=== PATIENT | male | born 1955 | race American Indian/Alaskan Native ===

== ENCOUNTER 2018-10-13 07:55 | Emergency (ER) | payer MEDICAID ==
[2018-10-13 07:56] VITALS: BMI 28.4
[2018-10-13 08:07] VITALS: BP 156/81; PULSE 96; RESP 20; TEMP 98.7; O2SAT 96
[2018-10-13] MEDS ORDERED: Tdap Vaccine 0.5 ml Vial (10-64 yrs) IM ONE ×2 (08:20→08:25)
--- NOTE | 2018-10-13 08:30 | C.PDOC ---
History Of Present Illness 63 y/o male presents to the ER for evaluation of right hand dog bite which has been present for the past 2 days. Patient states that the wound is well-healing. Patient reports that the dog was her cousin's pet and the dog is UTD with vaccinations. He notes that he decided to come to the ER because he wants a tetanus vaccination. Denies having fever,chills, weakness, numbness, and other injuries. Time Seen by Provider: 10/13/18 08:11 Chief Complaint (Nursing): Bite History Per: Patient History/Exam Limitations: no limitations Onset/Duration Of Symptoms: Days Current Symptoms Are (Timing): Still Present Severity: Moderate Past Medical History Reviewed: Historical Data, Nursing Documentation, Vital Signs Vital Signs: Last Vital Signs Temp 98.7 F 10/13/18 08:04 Pulse 96 H 10/13/18 08:04 Resp 20 10/13/18 08:04 BP 156/81 H 10/13/18 08:04 Pulse Ox 96 10/13/18 08:04 - Medical History PMH: HTN, Hypercholesterolemia Denies: Chronic Kidney Disease Other Surgeries: Hx of surgeries Family History: States: No Known Family Hx - Social History Hx Tobacco Use: Yes Hx Alcohol Use: Yes Hx Substance Use: No - Immunization History Hx Tetanus Toxoid Vaccination: No Hx Influenza Vaccination: No Hx Pneumococcal Vaccination: No Review Of Systems Except As Marked, All Systems Reviewed And Found Negative. Constitutional: Negative for: Fever, Chills Skin: Positive for: Other (right hand dog bite) Neurological: Negative for: Weakness, Numbness Physical Exam - Physical Exam Appears: Non-toxic, No Acute Distress Skin: Normal Color, Warm, Dry, Other (2 healed puncture wounds to dorsal aspect of right hand) Head: Atraumatic, Normacephalic Eye(s): bilateral: Normal Inspection Nose: Normal Oral Mucosa: Moist Neck: Supple Chest: Symmetrical Extremity: Normal ROM (right hand), No Tenderness (right hand), Capillary Refill (< 2 seconds), No Swelling (right hand) Pulses: Right Radial: Normal Neurological/Psych: Oriented x3, Normal Speech ED Course And Treatment O2 Sat by Pulse Oximetry: 96 (RA) Pulse Ox Interpretation: Normal Medical Decision Making Medical Decision Making: Plan: --Tetanus Vaccination Updates: Patient has been discharged and instructed to return to the ER if symptoms worsen. Disposition - Disposition Referrals: Stevo Reese MD [Staff Provider] - Disposition: HOME/ ROUTINE Disposition Time: 08:26 Condition: GOOD Additional Instructions: Return if worsened/ Prescriptions: Amoxicillin/Clavulanate [Augmentin 875 MG-125 MG] 1 tab PO BID #14 tab Instructions: Animal Bites (DC) Forms: [employer] ([place] Citizen) - Clinical Impression Clinical Impression: Animal bite wound, Vaccine for tetanus toxoid - PA / EMERGENCY MEDICAL SERVICES COORDINATOR / Resident Statement MD/DO has reviewed & agrees with the documentation as recorded. - Scribe Statement The provider has reviewed the documentation as recorded by the Scribe Yadi Patterson Provider Attestation All medical record entries made by the Desmondibe were at my direction and personally dictated by me. I have reviewed the chart and agree that the record accurately reflects my personal performance of the history, physical exam, medical decision making, and the department course for this patient. I have also personally directed, reviewed, and agree with the discharge instructions and disposition.
== END 2018-10-13 08:33 | disposition home or self-care (01) ==
LOC: C.ER 07:55
DX: S61.431A Puncture wound without foreign body of right hand, initial encounter (principal); W54.0XXA Bitten by dog, initial encounter; I10 Essential (primary) hypertension; E78.00 Pure hypercholesterolemia, unspecified; Z72.0 Tobacco use; Z23 Encounter for immunization